=== PATIENT | female | born 1955 | race Caucasian/White ===

== ENCOUNTER → 2017-08-01 | Outpatient (CLI) | payer MEDICARE, OTHER ==
[~2017-08-01] MED LIST: AMAN100 PO; AMIT75 PO; AMPYRA10 MG PO; CIPR500 PO; GILENYA0.5 MG PO; Hydrocodone-Ap1 EA23 PO; RIZATRIPTAN10 MG PO
== END | disposition home or self-care (01) ==
LOC: LAB SHORT 11:33 → LAB EV 11:33
DX: R35.0 Frequency of micturition (principal)
CPT/HCPCS: 87077; 87086; 87186

== ENCOUNTER → 2017-10-25 | Outpatient (CLI) | payer MEDICARE, OTHER | END | disposition home or self-care (01) | LOC: LAB EV 10:36 → LAB SHORT 10:36 | DX: N39.0 Urinary tract infection, site not specified (principal) | CPT/HCPCS: 87077; 87086; 87186 ==

== ENCOUNTER → 2018-11-29 | Outpatient (CLI) | payer OTHER, MEDICARE ==
[2018-12-02 14:26] LABS: Stool Occult Bld Immuno 1 Negative (NEGATIVE)
== END ==
LOC: LAB EV 10:30
PROVIDERS: Student in an Organized Health Care Education/Training Program
DX: Z12.11 Encounter for screening for malignant neoplasm of colon (principal); I10 Essential (primary) hypertension
CPT/HCPCS: G0328